=== PATIENT | male | born 1990 ===

== ENCOUNTER 2017-02-05 19:56 | Emergency (ER) | payer OTHER ==
[2017-02-05] MEDS ORDERED: NS 0.9% 1000 ML* 1,000 ML IV ONE (21:00)
[2017-02-05] MEDS ORDERED: Al Hydrox/Mg Hydrox/Simet LIQ* 30 ML UDC PO ONE (21:21)
[2017-02-05] MEDS ORDERED: Lidocaine 2% VISCOUS* 15 ML UDC PO ONE (21:21)
[2017-02-05] MEDS ORDERED: Ondansetron INJ* 2 MG/ML VIAL IV ONE (21:21)
[2017-02-05] MEDS ORDERED: Pantoprazole IV* 40 MG IV ONE (21:21)
[2017-02-05 21:39] LABS: Urine Bacteria Absent (Absent); Urine Bilirubin Negative (Negative); Urine Glucose Negative (Negative); Urine Nitrite Negative (Negative)
[2017-02-05 21:42] LABS: Hematocrit 40 % (42-52); Mean Corpuscular HGB Conc 32 g/dl (31-36); Mean Corpuscular Hemoglobin 27 pg (27-31); Mean Corpuscular Volume 85 fL (80-94); Mean Platelet Volume 10 um3 (7.4-10.4); Red Blood Count 4.76 10^6/ul (4.0-5.4); Red Cell Distribution Width 14 % (10.5-15); White Blood Count 5.5 10^3/ul (3.5-10.8)
[2017-02-05 21:58] LABS: ALT 13 U/L (7-52); Albumin 4.6 g/dL (3.2-5.2); Alkaline Phosphatase 53 U/L (34-104); BUN/Creatinine Ratio 20.8 (8-20); Blood Urea Nitrogen 21 mg/dL (6-24); C Reactive Protein 1.14 mg/L (< 5.00); CO2 Carbon Dioxide 28 mmol/L (22-32); Calcium 9.9 mg/dL (8.6-10.3); Chloride 102 mmol/L (101-111); EGFR African American 116.7 (>60); EGFR Non-African American 90.8 (>60); Globulin 2.6 g/dL (2-4); Glucose 88 mg/dL (70-100); Lipase 37 U/L (11.0-82.0); Sodium 135 mmol/L (133-145); Total Protein 7.2 g/dL (6.4-8.9)
[2017-02-05 21:59] LABS: Anion Gap 5 mmol/L (2-11)
[2017-02-05] MEDS ORDERED: Ketorolac INJ* 30 MG/ML 1 ML VIAL IV ONE (22:46)
[2017-02-05] MEDS ORDERED: Iohexol 300* (CONTRAST) 10 ML SDV IV ONE (22:56)
--- NOTE | 2017-02-05 23:32 | RAD ---
Indication: Abdominal pain and nausea for one day. Comparison: No relevant prior exams available on the [facility] PACS for comparison. Technique: RIGHT upper quadrant ultrasound. Report: Appropriate direction flow documented in the portal and hepatic veins. 13.4 cm liver is normal in echogenicity. Negative for focal hepatic lesions. Negative for intrahepatic biliary dilatation. 3.8 mm common bile duct. The gallbladder is contracted limiting assessment. Insufficient fasting prior to exam. Nonetheless the gallbladder wall is upper normal in thickness at 3 mm. No visualized gallstones or biliary sludge. Negative for pericholecystic fluid. Negative for sonographic Sarabia's sign. The pancreatic head and tail are largely obscured due to bowel gas with the visualized pancreas unremarkable. Negative for ascites. 9.6 x 3.8 x 5.3 cm RIGHT kidney. The inferior pole is obscured due to bowel gas. Negative for obstructive uropathy. IMPRESSION: 1. No abnormality of the liver. 2. Negative for biliary dilatation. 3. Assessment of the gallbladder is limited due to contracted state without gross abnormality. If there is high clinical index of suspicion for gallbladder pathology nonemergent repeat exam after appropriate fasting would be suggested. 4. Negative for ascites.
[2017-02-06 01:07] VITALS: BP 102/82
--- NOTE | 2017-02-06 11:20 | RAD ---
INDICATION: Periumbilical abdominal pain. COMPARISON: Comparison is made with a prior right upper quadrant ultrasound study of the same date. TECHNIQUE: A CT scan of the abdomen and pelvis was performed with intravenous and oral contrast following intravenous injection of 88 ml of Omnipaque 300 nonionic contrast. Contiguous axial sections were obtained from the lung bases through the symphysis pubis. Images were reconstructed in the coronal and sagittal planes. FINDINGS: The lung bases are clear. No pleural effusion is present. The liver and spleen are within normal limits in size without significant focal abnormality. No calcified gallstones are seen. The pancreas appears to be within normal limits in size. The kidneys and adrenal glands appear normal in size. There are mildly prominent bilateral extrarenal pelvises. There is no gross evidence for hydronephrosis. No significant focal renal abnormality is seen. The aorta is normal in caliber and demonstrates homogeneous contrast opacification. There is a retroaortic left renal vein. No significant enlarged retroperitoneal lymph nodes are seen. The stomach is distended with contrast and there is mild distention of proximal small bowel loops likely due to rapid ingestion of contrast less likely a partial small bowel obstruction. The colon is nondistended. There are couple large appendicoliths. No surrounding inflammatory changes are seen. There is a moderate amount retained stool. There is no evidence for diverticulitis or colitis. No free intraperitoneal air or fluid is seen. There is a mild lumbar scoliosis convex toward the left side. No significant focal osseous abnormality is seen. IMPRESSION: 1. MILD DILATATION OF THE PROXIMAL SMALL BOWEL LIKELY DUE TO RAPID INJECTION OF CONTRAST MUST LESS LIKELY A PARTIAL SMALL BOWEL OBSTRUCTION. 2. PROMINENT APPENDICOLITH ALTHOUGH NO EVIDENCE FOR INFLAMMATORY CHANGE OR APPENDICITIS. IF THE PATIENT'S SYMPTOMS PERSIST CONSIDER FOLLOW-UP IMAGING.
--- NOTE | 2017-02-06 15:42 | ED ---
Rex Infante Alfonso, scribed for Justin Bledsoe MD on 02/05/17 at 2137 . Abdominal Pain/Male - HPI Summary HPI Summary: This patient is a 26 year old male presenting to [facility] c/o severe diffuse abdominal pain since yesterday. The pain is intermittent, having resolved in the morning but returned in the afternoon. Symptoms aggravated by movement and alleviated by both spontaneous resolution and lying down. The pain is rated 8/ 10 in severity. He reports nausea, decreased appetite, and pain after BM. He denies fever, diarrhea, constipation, and dysuria. The patient also denies testicular pain, CP, SOB, and recent trauma. No PMHx of GERD. No PSHx. - History of Current Complaint Chief Complaint: EDAbdPain Stated Complaint: ABD PAIN Time Seen by Provider: 02/05/17 21:13 Hx Obtained From: Patient Onset/Duration: Sudden Onset, Lasting Days - Since yesterday, Resolved, Worse Since Timing: Lasting Days - Since yesterday Severity Initially: Severe Severity Currently: Severe Pain Intensity: 8 Pain Scale Used: 0-10 Numeric Location: Diffuse Aggravating Factor(s): Movement Alleviating Factor(s): Position - Lying down, Spontaneous Resolution Associated Signs And Symptoms: Positive: Urinary Symptoms - Negative dysuria, Decreased Appetite, Nausea, Other - Positive pain after BM; Negative SOB, testicular pain, recent trauma. Negative: Fever, Chest Pain, Constipation, Diarrhea - Allergies/Home Medications Allergies/Adverse Reactions: Allergies Allergy/AdvReac Type Severity Reaction Status Date / Time No Known Allergies Allergy Verified 02/05/17 20:31 PMH/Surg Hx/FS Hx/Imm Hx Sensory History: Denies: Hx Deafness Opthamlomology History: Denies: Hx Legally Blind Infectious Disease History: No Infectious Disease History: Denies: Traveled Outside the [place] in Last 30 Days - Family History Known Family History: Positive: Diabetes - Grandmother and grandfather - Social History Alcohol Use: Occasionally Substance Use Type: Reports: Marijuana Review of Systems Negative: Fever Negative: Chest Pain Negative: Shortness Of Breath Positive: Abdominal Pain - Severe and diffuse, Nausea, Other - Positive loss of appetite and pain after BM; negative constipation. Negative: Diarrhea Positive: pain - Negative testicular pain. Negative: dysuria Positive: Other - negative recent trauma All Other Systems Reviewed And Are Negative: Yes Physical Exam - Summary Physical Exam Summary: Gen: well-appearing, mild pain distress Skin: warm, color, dry Head: normal Eyes: EOMI, LINSEY ENT: normal Neck: supple, nontender Resp: CTA, breath sounds present Cardio: RRR Abd: Tender periumbilical, epigastric, and RUQ Bowel: hypoactive bowel sounds Musc: normal, strength/ROM intact Neuro: normal, sensory/motor intact, A&O x3 Psych: affect/mood appropriate Triage Information Reviewed: Yes Vital Signs On Initial Exam: Initial Vitals Temp Pulse Resp BP Pulse Ox 98.2 F 90 18 134/71 100 02/05/17 19:57 02/05/17 19:57 02/05/17 19:57 02/05/17 19:57 02/05/17 19:57 Vital Signs Reviewed: Yes Diagnostics - Vital Signs Vital Signs Temp Pulse Resp BP Pulse Ox 02/05/17 19:57 98.2 F 90 18 134/71 100 - Laboratory Lab Results: Lab Results 02/05/17 02/05/17 02/05/17 Range/Units 21:25 21:30 21:30 WBC 5.5 (3.5-10.8) 10^3/ul RBC 4.76 (4.0-5.4) 10^6/ul Hgb 13.0 L (14.0-18.0) g/dl Hct 40 L (42-52) % MCV 85 (80-94) fL MCH 27 (27-31) pg MCHC 32 (31-36) g/dl RDW 14 (10.5-15) % Plt Count 194 (150-450) 10^3/ul MPV 10 (7.4-10.4) um3 Neut % (Auto) 42.6 (38-83) % Lymph % (Auto) 44.1 (25-47) % [place] % (Auto) 9.8 H (1-9) % Eos % (Auto) 3.0 (0-6) % Baso % (Auto) 0.5 (0-2) % Absolute Neuts (auto) 2.3 (1.5-7.7) 10^3/ul Absolute Lymphs (auto) 2.4 (1.0-4.8) 10^3/ul Absolute Monos (auto) 0.5 (0-0.8) 10^3/ul Absolute Eos (auto) 0.2 (0-0.6) 10^3/ul Absolute Basos (auto) 0 (0-0.2) 10^3/ul Absolute Nucleated RBC 0.01 10^3/ul Nucleated RBC % 0.1 Sodium 135 (133-145) mmol/L Potassium TNP Chloride 102 (101-111) mmol/L Carbon Dioxide 28 (22-32) mmol/L Anion Gap 5 (2-11) mmol/L BUN 21 (6-24) mg/dL Creatinine 1.01 (0.67-1.17) mg/dL Est GFR ( Amer) 116.7 (>60) Est GFR (Non-Af Amer) 90.8 (>60) BUN/Creatinine Ratio 20.8 H (8-20) Glucose 88 (70-100) mg/dL Lactic Acid (0.5-2.0) mmol/L Calcium 9.9 (8.6-10.3) mg/dL Total Bilirubin 0.30 (0.2-1.0) mg/dL AST TNP ALT 13 (7-52) U/L Alkaline Phosphatase 53 (34-104) U/L C-Reactive Protein 1.14 (< 5.00) mg/L Total Protein 7.2 (6.4-8.9) g/dL Albumin 4.6 (3.2-5.2) g/dL Globulin 2.6 (2-4) g/dL Albumin/Globulin Ratio 1.8 (1-3) Lipase 37 (11.0-82.0) U/L Urine Color Yellow Urine Appearance Cloudy Urine pH 7.0 (5-9) Ur Specific [place] 1.019 (1.010-1.030) Urine Protein Negative (Negative) Urine Ketones Negative (Negative) Urine Blood Negative (Negative) Urine Nitrate Negative (Negative) Urine Bilirubin Negative (Negative) Urine Urobilinogen Negative (Negative) Ur Leukocyte Esterase Trace H (Negative) Urine WBC (Auto) Trace(0-5/hpf) (Absent) Urine RBC (Auto) Absent (Absent) Urine Bacteria Absent (Absent) Urine Glucose Negative (Negative) 02/05/17 02/05/17 02/06/17 Range/Units 21:30 22:30 00:05 WBC (3.5-10.8) 10^3/ul RBC (4.0-5.4) 10^6/ul Hgb (14.0-18.0) g/dl Hct (42-52) % MCV (80-94) fL MCH (27-31) pg MCHC (31-36) g/dl RDW (10.5-15) % Plt Count (150-450) 10^3/ul MPV (7.4-10.4) um3 Neut % (Auto) (38-83) % Lymph % (Auto) (25-47) % [place] % (Auto) (1-9) % Eos % (Auto) (0-6) % Baso % (Auto) (0-2) % Absolute Neuts (auto) (1.5-7.7) 10^3/ul Absolute Lymphs (auto) (1.0-4.8) 10^3/ul Absolute Monos (auto) (0-0.8) 10^3/ul Absolute Eos (auto) (0-0.6) 10^3/ul Absolute Basos (auto) (0-0.2) 10^3/ul Absolute Nucleated RBC 10^3/ul Nucleated RBC % Sodium (133-145) mmol/L Potassium TNP 4.0 Chloride (101-111) mmol/L Carbon Dioxide (22-32) mmol/L Anion Gap (2-11) mmol/L BUN (6-24) mg/dL Creatinine (0.67-1.17) mg/dL Est GFR ( Amer) (>60) Est GFR (Non-Af Amer) (>60) BUN/Creatinine Ratio (8-20) Glucose (70-100) mg/dL Lactic Acid 0.9 (0.5-2.0) mmol/L Calcium (8.6-10.3) mg/dL Total Bilirubin (0.2-1.0) mg/dL AST TNP 17 ALT (7-52) U/L Alkaline Phosphatase (34-104) U/L C-Reactive Protein (< 5.00) mg/L Total Protein (6.4-8.9) g/dL Albumin (3.2-5.2) g/dL Globulin (2-4) g/dL Albumin/Globulin Ratio (1-3) Lipase (11.0-82.0) U/L Urine Color Urine Appearance Urine pH (5-9) Ur Specific [place] (1.010-1.030) Urine Protein (Negative) Urine Ketones (Negative) Urine Blood (Negative) Urine Nitrate (Negative) Urine Bilirubin (Negative) Urine Urobilinogen (Negative) Ur Leukocyte Esterase (Negative) Urine WBC (Auto) (Absent) Urine RBC (Auto) (Absent) Urine Bacteria (Absent) Urine Glucose (Negative) Result Diagrams: 02/05/17 21:30 02/06/17 00:05 Lab Statement: Any lab studies that have been ordered have been reviewed, and results considered in the medical decision making process. Re-Evaluation - Re-Evaluation First Eval Re-Evaluation Time: 22:45 Comment: The pain improved after the GI cocktail, but is now getting worse. Abdominal Pain Fem Course/Dx - Course Course Of Treatment: NO CRITICAL CARE TIME. DISPOSITION PENDING AT SHIFT CHANGE , STABLE. - Diagnoses Provider Diagnoses: Abdominal pain Discharge - Discharge Plan Condition: Stable Disposition: HOME Patient Education Materials: Abdominal Pain (ED) Referrals: Sundeep Contreras MD [Primary Care Provider] - 2 Days The documentation as recorded by the Rex villarreal Alfonso accurately reflects the service I personally performed and the decisions made by me, Justin Bledsoe MD.
== END 2017-02-06 00:25 | disposition home or self-care (01) ==
LOC: ED 19:56
DX: R10.9 Unspecified abdominal pain (principal)
CPT/HCPCS: 36415; 74177; 76705; 80053; 81003; 81015; 83605; 83690; 85025; 86140; 87086; 96374; 99283; A9270-GY; J1885; J2405; Q9967

== ENCOUNTER 2018-02-09 01:36 | Emergency (ER) | payer OTHER ==
[2018-02-09 02:46] LABS: ABS Basophils 0 10^3/ul (0-0.2); ABS Eosinophils 0.1 10^3/ul (0-0.6); ABS Lymphocytes 1.2 10^3/ul (1.0-4.8); ABS Monocytes 0.9 10^3/ul (0-0.8); ABS Nucleated RBC 0 10^3/ul; Eosinophil % 0.8 % (0-6); Hematocrit 39 % (42-52); Hemoglobin 13.2 g/dl (14.0-18.0); Lymphocyte % 16.8 % (25-47); Mean Corpuscular HGB Conc 34 g/dl (31-36); Mean Corpuscular Hemoglobin 29 pg (27-31); Mean Corpuscular Volume 85 fL (80-94); Mean Platelet Volume 9.6 um3 (7.4-10.4); Nucleated Red Blood Cells % 0; Platelet Count 170 10^3/ul (150-450); Red Blood Count 4.62 10^6/ul (4.00-5.40); Red Cell Distribution Width 14 % (10.5-15); White Blood Count 7.2 10^3/ul (3.5-10.8)
[2018-02-09 02:59] LABS: EGFR Non-African American 102.8 (>60)
[2018-02-09 03:35] LABS: Urine Appearance Clear; Urine Blood 1+ (Negative); Urine Color Yellow; Urine Ketones Negative (Negative); Urine Protein Negative (Negative); Urine Red Blood Cell Trace(0-2/hpf) (Absent); Urine Specific Gravity 1.028 (1.010-1.030); Urine Urobilinogen Negative (Negative); Urine White Blood Cell Trace(0-5/hpf) (Absent)
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
[2018-02-09 07:41] VITALS: BP 125/69
== END 2018-02-09 07:36 | disposition home or self-care (01) ==
LOC: ED 01:36
DX: F32.9 Major depressive disorder, single episode, unspecified (principal)
CPT/HCPCS: 36415; 80053; 80307; 80320; 80329; 81003; 81015; 84443; 85025; 87086; 99284; G0480

== ENCOUNTER 2019-10-08 12:04 | Emergency (ER) | payer OTHER ==
[2019-10-08 12:21] VITALS: BP 125/69
--- NOTE | 2019-10-08 12:23 | UC ---
FLU HPI - HPI Summary HPI Summary: 28 yo male presents with cold symptoms. He tells me that for 2 days he has had sinus congestion and a dry cough. Today woke up with a sore throat. His son had the flu last week and pt is concerned about this today. He has not taken any OTC medications. He is eating, drinking, and tolerating po well but does hurt to swallow. Denies fever, rash, SOB, abdominal pain, n/v. Pt states he does not take any medications. - History of Current Complaint Chief Complaint: UCRespiratory Stated Complaint: SORE THROAT COUGH STUFFY NOSE Time Seen by Provider: 10/08/19 12:22 Hx Obtained From: Patient Onset/Duration: Gradual Onset Severity Currently: Moderate Severity Initially: Moderate Pain Intensity: 7 Pain Scale Used: 0-10 Numeric - Allergy/Home Medications Allergies/Adverse Reactions: Allergies Allergy/AdvReac Type Severity Reaction Status Date / Time No Known Allergies Allergy Verified 10/08/19 12:21 PMH/Surg Hx/FS Hx/Imm Hx - Additional Past Medical History Additional PMH: None - Surgical History Surgical History: Yes Surgery Procedure, Year, and Place: HERNIA REPAIR - Family History Known Family History: Positive: Diabetes - Grandmother and grandfather - Social History Lives: With Family Alcohol Use: Occasionally Substance Use Type: Marijuana Substance Use Comment - Amount & Last Used: daily Smoking Status (MU): Light Every Day Tobacco Smoker Amount Used/How Often: 1/2PPD Review of Systems All Other Systems Reviewed And Are Negative: No Constitutional: Positive: Negative Skin: Positive: Negative Eyes: Positive: Negative ENT: Positive: Sore Throat, Nasal Discharge, Sinus Congestion Respiratory: Positive: Cough Cardiovascular: Positive: Negative Gastrointestinal: Positive: Negative Neurological/Mental Status: Positive: Negative Psychological: Positive: Negative Physical Exam - Summary Physical Exam Summary: GENERAL: NAD. WDWN. No pain distress. SKIN: No rashes, sores, lesions, or open wounds. HEENT: Head: AT/NC Eyes: Conjunctiva clear without inflammation or discharge. Ears: Hearing grossly normal. TMs intact, no bulging, erythema, or edema. Nose: Nasal mucosa pink and moist. NTTP maxillary and frontal sinus. Throat: Posterior oropharynx mild erythema and 2+ tonsillar enlargement. Few white exudates. Uvula midline. No hoarse voice or muffled voice. NECK: Supple. B/L shotty tonsillar LAD nttp CHEST: CTAB. No r/r/w. No accessory muscle use. Breathing comfortably and in no distress. CV: RRR. Pulses intact. Cap refill <2seconds NEURO: Alert. PSYCH: Age appropriate behavior. Triage Information Reviewed: Yes Vital Signs: Initial Vital Signs Temp 98.8 F 10/08/19 12:16 Pulse 86 10/08/19 12:16 Resp 16 10/08/19 12:16 BP 125/69 10/08/19 12:16 Pulse Ox 99 10/08/19 12:16 Vital Signs Reviewed: Yes Flu Course/Dx - Course Course Of Treatment: POC strep and flu negative. Suspect tonsillitis/viral illness - rx for prednisone and advised OTC supportive care. Recheck if symptoms do not improve - Differential Dx/Diagnosis Provider Diagnosis: Tonsillitis Discharge ED - Sign-Out/Discharge Documenting (check all that apply): Patient Departure All imaging exams completed and their final reports reviewed: No Studies - Discharge Plan Condition: Stable Disposition: HOME Prescriptions: predniSONE 20 mg TAB [Deltasone 20 MG TAB*] 40 mg PO DAILY #10 tab Patient Education Materials: Tonsillitis (ED), Viral Syndrome (ED) Forms: *Work Release Referrals: No Primary Care Phys,NOPCP [Primary Care Provider] - Additional Instructions: STREP AND FLU TEST NEGATIVE TODAY Your symptoms are likely from a viral infection. Viral infections do not respond to antibiotics and are limited to the treatment of symptoms. Viral infections typically run their course in 7-10 days. Drink plenty of fluids, especially if you are running any fever. Use salt water gargles several times a day. Take over the counter acetaminophen (Tylenol) or ibuprofen (Advil, Motrin) according to directions as needed for pain or fever. You may also use Chloraseptic spray or Cepacol lonzenges according to directions which contain a numbing medication and can provide some temporary relief from a sore throat. Return here or follow up with your primary care provider in 7 days if symptoms persist. - Billing Disposition and Condition Condition: STABLE Disposition: Home - Attestation Statements Provider Attestation: I was available for consult. This patient was seen by the KELIN. The patient was not presented to, seen by, or examined by me. -Maxim
[2019-10-08 12:40] LABS: Influenza A Molecular Negative (Negative); Influenza B Molecular Negative (Negative)
== END 2019-10-08 12:56 | disposition home or self-care (01) ==
LOC: UCEAST 12:04
DX: J03.90 Acute tonsillitis, unspecified (principal); F17.210 Nicotine dependence, cigarettes, uncomplicated; R09.89 Other specified symptoms and signs involving the circulatory and respiratory systems
CPT/HCPCS: 87651; 99211; G0463